=== PATIENT | female | born 1960 | race Caucasian/White ===

== ENCOUNTER 2018-01-15 14:07 | Emergency (ER) | payer OTHER ==
[2018-01-15] MEDS: KETOROLAC 30 MG INJ IM (15:34)
== END 2018-01-15 15:42 | disposition home or self-care (01) ==
LOC: FTE 14:07
DX: M79.671 Pain in right foot (principal); I10 Essential (primary) hypertension; Z79.82 Long term (current) use of aspirin
CPT/HCPCS: 96372; 99284-25

== ENCOUNTER 2018-08-05 09:31 | Emergency (ER) | payer OTHER ==
[2018-08-05] MEDS: BENZONATATE 100 MG CAP PO (10:51)
== END 2018-08-05 11:42 | disposition home or self-care (01) ==
LOC: FTE 09:31
DX: J01.90 Acute sinusitis, unspecified (principal); I10 Essential (primary) hypertension; E11.9 Type 2 diabetes mellitus without complications; Z79.82 Long term (current) use of aspirin
CPT/HCPCS: 71045; 99283-25

== ENCOUNTER 2018-09-14 06:59 | Day surgery (SDC) | payer OTHER ==
[2018-09-14] MEDS ORDERED: FENTAnyl 50 MCG/ML VIAL (09:47)
[2018-09-14] MEDS ORDERED: MIDAZOLAM 1 MG/ML 2 ML INJ ×2 (09:48)
== END 2018-09-14 11:04 | disposition home or self-care (01) ==
LOC: GIL 06:59
DX: K64.8 Other hemorrhoids (principal); K57.30 Diverticulosis of large intestine without perforation or abscess without bleeding; R10.10 Upper abdominal pain, unspecified; I10 Essential (primary) hypertension; E11.9 Type 2 diabetes mellitus without complications
CPT/HCPCS: 43239; 82962; 88305; 88312

== ENCOUNTER 2018-10-31 06:57 | Observation (INO) | payer OTHER ==
[2018-10-31 07:44] LABS: ADD MAN DIFF? NO
[2018-10-31 07:47] LABS: BASOPHILS % 0.6 % (0.0-2.0); EOSINOPHILS % 0.6 % (0.0-7.0); HEMATOCRIT 43.8 % (37.0-47.0); HEMOGLOBIN 15.2 g/dl (12.0-16.0); LYMPHOCYTES # 1.9 10^3/ul (0.8-2.9); LYMPHOCYTES % 36.5 % (15.0-51.0); MEAN CORPUSCULAR HEMOGLOBIN 33.1 pg (29.0-33.0); MEAN CORPUSCULAR HGB CONC 34.7 g/dl (32.0-37.0); MEAN CORPUSCULAR VOLUME 95.4 fl (82.0-101.0); MEAN PLATELET VOLUME 8.5 fl (7.4-10.4); MONOCYTE # 0.4 10^3/ul (0.3-0.9); MONOCYTES % 7.6 % (0.0-11.0); NEUTROPHIL # 2.8 10^3/ul (1.6-7.5); NEUTROPHILS % 54.3 % (39.0-77.0); PLATELET COUNT 199 10^3/UL (140-415); RED BLOOD COUNT 4.59 10^6/ul (4.20-5.40); RED CELL DISTRIBUTION WIDTH 12.6 % (11.5-14.5)
[2018-10-31 07:47] LABS: WHITE BLOOD COUNT 5.2 10^3/ul (4.8-10.8)
[2018-10-31] MEDS: ASPIRIN 325 MG TAB PO (07:57)
[2018-10-31] MEDS: MAGNESIUM SULFATE 2 GM/50 ML 50 ML IVPB (07:57)
[2018-10-31] MEDS: SOD CHLORIDE 0.9% 1,000 ML IV (07:57)
[2018-10-31 08:06] LABS: INR 0.89; PROTIME 12.1 Sec (11.9-14.9); PT RATIO 0.9
[2018-10-31 08:07] LABS: PARTIAL THROMBOPLASTIN TIME 28.6 Sec (23.0-35.0)
[2018-10-31 08:08] LABS: ANION GAP 12 (5-13); BLOOD UREA NITROGEN 17 mg/dl (7-20); CALCIUM 9.2 mg/dl (8.4-10.2); CARBON DIOXIDE 24 mmol/L (21-31); CHLORIDE 104 mmol/L (97-110); CREATININE 0.68 mg/dl (0.44-1.00); Estimated GFR > 60 mL/min (>60); GLUCOSE 176 mg/dl (70-220); POTASSIUM 4.4 mmol/L (3.5-5.1); SODIUM 140 mmol/L (135-144)
[2018-10-31 08:21] LABS: B-TYPE NATRIURETIC PEPTIDE 519 PG/ML (0-125); TROPONIN-I < 0.012 ng/ml (0.000-0.120)
[2018-10-31 08:25] LABS: FREE THYROXINE INDEX (Calc) 2.41 ug/ml (0.65-3.89); T3 UPTAKE 35.5 % (23.5-40.5); T4 (THYROXINE) 6.8 ug/dl (5.5-11.0)
[2018-10-31] MEDS ORDERED: ONDANSETRON 4 MG INJ IV ×2 (09:00→10:00)
[2018-10-31] MEDS ORDERED: ACETAMINOPHEN 325 MG TAB PO (09:00)
[2018-10-31] MEDS ORDERED: NACL 0.9% 3 ML SYG IV (10:00)
[2018-10-31] MEDS ORDERED: GLUCOSE GEL 15 GRAM TUBE BUCCAL (10:30)
[2018-10-31] MEDS ORDERED: GLUCAGON 1 MG INJ IM (10:30)
[2018-10-31] MEDS ORDERED: GLUCOSE GEL 15 GRAM TUBE PO ×2 (10:30)
[2018-10-31] MEDS ORDERED: DEXTROSE 50% 50 ML SYRINGE IV ×2 (10:30)
[2018-10-31] MEDS: ACCU-CHEK XX ×3 (12:30→21:00)
[2018-10-31 14:36] LABS: CREATINE KINASE 39 IU/L (23-200)
[2018-10-31 14:49] LABS: CK INDEX 1.2; CK-MB 0.48 ng/ml (0.0-2.4); TROPONIN-I < 0.012 ng/ml (0.000-0.120)
[2018-10-31] MEDS ORDERED: METOPROLOL 5 MG INJ IV (15:30)
[2018-10-31] MEDS: ATORVASTATIN 10 MG TAB PO (21:15)
[2018-10-31] MEDS: APIXABAN 5 MG TABLET PO (21:15)
[2018-10-31] MEDS: FAMOTIDINE 20 MG TAB PO (21:15)
[2018-10-31] MEDS: METOPROLOL 25 MG TAB PO (21:16)
[2018-10-31 22:13] LABS: CREATINE KINASE 35 IU/L (23-200)
[2018-10-31 22:26] LABS: CK INDEX 1.1; CK-MB 0.39 ng/ml (0.0-2.4); TROPONIN-I < 0.012 ng/ml (0.000-0.120)
[2018-11-01 06:14] LABS: ADD MAN DIFF? NO
[2018-11-01 06:16] LABS: WHITE BLOOD COUNT 6.8 10^3/ul (4.8-10.8)
[2018-11-01 06:16] LABS: BASOPHILS % 0.6 % (0.0-2.0); EOSINOPHILS # 0.1 10^3/ul (0.0-0.5); HEMATOCRIT 40.7 % (37.0-47.0); HEMOGLOBIN 13.7 g/dl (12.0-16.0); LYMPHOCYTES # 2.3 10^3/ul (0.8-2.9); LYMPHOCYTES % 33.5 % (15.0-51.0); MEAN CORPUSCULAR HEMOGLOBIN 32.7 pg (29.0-33.0); MEAN CORPUSCULAR HGB CONC 33.7 g/dl (32.0-37.0); MEAN CORPUSCULAR VOLUME 97.1 fl (82.0-101.0); MEAN PLATELET VOLUME 8.7 fl (7.4-10.4); MONOCYTE # 0.8 10^3/ul (0.3-0.9); NEUTROPHIL # 3.6 10^3/ul (1.6-7.5); NEUTROPHILS % 52.6 % (39.0-77.0); PLATELET COUNT 185 10^3/UL (140-415); RED BLOOD COUNT 4.19 10^6/ul (4.20-5.40); RED CELL DISTRIBUTION WIDTH 13.1 % (11.5-14.5)
[2018-11-01 06:43] LABS: ALANINE AMINOTRANSFERASE 25 IU/L (13-69); ALBUMIN 3.8 g/dl (3.3-4.9); ALBUMIN/GLOBULIN RATIO 1.46; ALKALINE PHOSPHATASE 70 IU/L (42-121); ASPARTATE AMINO TRANSFERASE 23 IU/L (15-46); BILIRUBIN,INDIRECT 0.6 mg/dl (0-1.1); BILIRUBIN,TOTAL 0.6 mg/dl (0.2-1.3); BLOOD UREA NITROGEN 17 mg/dl (7-20); CALCIUM 9.1 mg/dl (8.4-10.2); CARBON DIOXIDE 28 mmol/L (21-31); CHOL/HDL RATIO 3.7 RATIO; CHOLESTEROL 94 mg/dl (100-200); CREATININE 0.78 mg/dl (0.44-1.00); Estimated GFR > 60 mL/min (>60); GLUCOSE 122 mg/dl (70-220); HDL CHOLESTEROL 25 mg/dl (35-98); LDL CHOLESTEROL,CALCULATED 45 mg/dl; MAGNESIUM 2.2 mg/dl (1.7-2.5); POTASSIUM 4.6 mmol/L (3.5-5.1); SODIUM 146 mmol/L (135-144); TOTAL PROTEIN 6.4 g/dl (6.1-8.1); TRIGLYCERIDES 119 mg/dl (0-149)
[2018-11-01 06:58] LABS: FREE THYROXINE INDEX (Calc) 2.07 ug/ml (0.65-3.89); T4 (THYROXINE) 5.6 ug/dl (5.5-11.0)
[2018-11-01 08:09] LABS: CHLORIDE 109 mmol/L (97-110)
[2018-11-01 08:13] LABS: ANION GAP 9 (5-13)
[2018-11-01] MEDS: ACCU-CHEK XX ×3 (08:14→17:06)
[2018-11-01] MEDS: ASPIRIN (EC) 81 MG TAB PO (08:51)
[2018-11-01] MEDS: METOPROLOL 25 MG TAB PO (08:51)
[2018-11-01] MEDS: FAMOTIDINE 20 MG TAB PO (08:51)
[2018-11-01] MEDS: APIXABAN 5 MG TABLET PO (08:51)
[2018-11-01] MEDS: metFORMIN (XR) 500 MG TAB PO (08:51)
[2018-11-01] MEDS: LOSARTAN 25 MG TAB PO (08:51)
[2018-11-01] MEDS ORDERED: LOSARTAN 50 MG TAB PO (09:00)
== END 2018-11-01 18:14 | disposition home or self-care (01) ==
LOC: TEL 20:38 → E/R 06:57 → TEL 08:47
DX: I48.0 Paroxysmal atrial fibrillation (principal); I10 Essential (primary) hypertension; E78.5 Hyperlipidemia, unspecified; E11.9 Type 2 diabetes mellitus without complications; Z79.82 Long term (current) use of aspirin
CPT/HCPCS: 36415; 71045; 80048; 80053; 80061; 82550; 82553; 82962; 83036; 83735; 83880; 84436; 84443; 84479; 84484; 85025; 85610; 85730; 93005; 93306; 96374; 99285-25; G0378

== ENCOUNTER 2018-11-04 22:41 | Emergency (ER) | payer OTHER ==
[2018-11-04] MEDS: ONDANSETRON 4 MG INJ IV (23:13)
[2018-11-04] MEDS: HYDROmorphONE 1 MG/ML SYG IV (23:13)
[2018-11-04 23:14] LABS: ADD MAN DIFF? NO
[2018-11-04 23:15] LABS: BASOPHILS % 0.4 % (0.0-2.0); EOSINOPHILS # 0.1 10^3/ul (0.0-0.5); EOSINOPHILS % 0.6 % (0.0-7.0); HEMATOCRIT 43.4 % (37.0-47.0); HEMOGLOBIN 14.8 g/dl (12.0-16.0); LYMPHOCYTES # 2.8 10^3/ul (0.8-2.9); LYMPHOCYTES % 30.4 % (15.0-51.0); MEAN CORPUSCULAR HEMOGLOBIN 32.6 pg (29.0-33.0); MEAN CORPUSCULAR HGB CONC 34.1 g/dl (32.0-37.0); MEAN CORPUSCULAR VOLUME 95.6 fl (82.0-101.0); MEAN PLATELET VOLUME 8.5 fl (7.4-10.4); MONOCYTES % 10.7 % (0.0-11.0); NEUTROPHIL # 5.2 10^3/ul (1.6-7.5); NEUTROPHILS % 57.6 % (39.0-77.0); PLATELET COUNT 196 10^3/UL (140-415); RED BLOOD COUNT 4.54 10^6/ul (4.20-5.40); RED CELL DISTRIBUTION WIDTH 12.5 % (11.5-14.5)
[2018-11-04 23:15] LABS: WHITE BLOOD COUNT 9.1 10^3/ul (4.8-10.8)
[2018-11-04 23:31] LABS: ALANINE AMINOTRANSFERASE 26 IU/L (13-69); ALBUMIN 4.6 g/dl (3.3-4.9); ALBUMIN/GLOBULIN RATIO 1.43; ALKALINE PHOSPHATASE 112 IU/L (42-121); ANION GAP 14 (5-13); ASPARTATE AMINO TRANSFERASE 23 IU/L (15-46); BILIRUBIN,INDIRECT 0.6 mg/dl (0-1.1); BILIRUBIN,TOTAL 0.6 mg/dl (0.2-1.3); BLOOD UREA NITROGEN 14 mg/dl (7-20); CALCIUM 9.8 mg/dl (8.4-10.2); CARBON DIOXIDE 29 mmol/L (21-31); CHLORIDE 102 mmol/L (97-110); CREATININE 0.69 mg/dl (0.44-1.00); Estimated GFR > 60 mL/min (>60); GLUCOSE 119 mg/dl (70-220); LIPASE 189 U/L (23-300); POTASSIUM 3.8 mmol/L (3.5-5.1); SODIUM 145 mmol/L (135-144); TOTAL PROTEIN 7.8 g/dl (6.1-8.1)
[2018-11-05] MEDS: ONDANSETRON 4 MG INJ IV ×2 (01:06→02:08)
[2018-11-05] MEDS: HYDROmorphONE 1 MG/ML SYG IV ×2 (01:06→02:08)
[2018-11-05] MEDS: KETOROLAC 30 MG INJ IV (02:08)
== END 2018-11-05 04:05 | disposition home or self-care (01) ==
LOC: E/R 11-05 04:05
DX: R10.11 Right upper quadrant pain (principal); K59.00 Constipation, unspecified; I10 Essential (primary) hypertension; Z79.84 Long term (current) use of oral hypoglycemic drugs; Z79.01 Long term (current) use of anticoagulants
CPT/HCPCS: 36415; 74176; 76705; 80053; 83690; 85025; 96374; 96375; 96376; 99285-25